=== PATIENT | female | born 1985 | race Asian ===

== ENCOUNTER 2021-12-27 00:47 | Day surgery (SDC) | payer BC, SELFPAY ==
[2021-12-23 17:06] VITALS: BMI 18.8
[2021-12-23 17:07] VITALS: BMI 27.6
--- NOTE | 2021-12-23 17:31 | PC.NURSE ---
Report to the Outpatient Waiting Room, entrance under the green pavilion located off [facility], at 0730 on 12-27-21 . OR Time: 0930. - You and your visitor will be asked a series of questions to screen for COVID 19 for your protection. - Only one visitor is allowed at this time. - The patient visitor is requested to leave or wait in car when not with patient. - A mask is required within the hospital. Patients may have clear liquids (water, carbonated beverages, clear teas, apple juice) until 3 hours prior to surgery with a maximum of 20 ounces. 0630 - No food from midnight until time of surgery - Infants may have breast milk until 4 hours before surgery, infant formula 6 hours prior to surgery. - Children will be allowed to drink immediately following surgery. If applicable, please bring a bottle or sippy cup to assist with drinking. Juice, water, soda, and popsicles are readily available. For infants on formula, please bring formula the day of surgery. Pacifiers are allowed. Take the following medications with a SIP of water the morning of surgery: None Medications to discontinue per physician: N/A Please no make-up, nail romanian, hairspray, perfume, deodorant, or body powder the day of surgery. No jewelry (including any body piercings) or valuables the day of surgery, leave them at home. Please take a shower or bath the night before, or the morning of, surgery with an antibacterial soap. Wear comfortable, loose fitting clothing. Children are encouraged to wear pajamas. - Jewelry must be removed prior to entering the operating room. Rings and piercings that are not removed may be cut off. - The hospital will not accept responsibility for valuables. - Please leave all valuables, including medications, at home the day of surgery. If you are going home after surgery, a licensed emergency detail driver must drive you home. - NO public transportation without another adult. - We recommend that an adult stay with you for 24 hours following discharge. - We also recommend that you do not drive, make important decision, drink alcoholic beverages, or take any drugs that were not prescribed by your health care provider for at least 24 hours after your discharge time. For Pediatric surgeries, we recommend two adults accompany the child home (only one inside the building at this time). Follow any additional instructions given to you from your surgeon. If you or anyone in your household have experienced Covid symptoms in the past week, please notify your surgeon or the nurse liaison at the phone number below for possible testing. Telephone instructions given to Matias Flores and asked if any additional questions and then verbalized understanding. Patient advised to call surgeon office or pre surgery nurse liaison [phone] if any additional questions.
--- NOTE | 2021-12-26 07:14 | P.HP_ITS ---
H&P: HPI History of Present Illness Date/Time: 12/26/21 07:14 Chief Complaint: Chronic tonsillitis recurrent tonsillitis difficult intubation Narrative: history of difficult intubation flexible laryngoscopy demonstrates her the airway by my review. Planned surgical procedure otherwise. [facility] Past Medical History Medical History Acne Family History Family History Mother Hypertension Heart disease Social History Social History Social History: Smoking status: Never smoker Second hand tobacco smoke exposure: No Alcohol intake: never Substance use: never Substance use type: does not use Living arrangements: alone Gender identity (if verbalized by the patient): Female Sexual Orientation (if Verbalized by the Patient): Straight or Heterosexual Spiritual care concerns: No Meds Home Medications and Allergies Home Medications Medication Instructions Recorded Confirmed Type clindamycin HCl 300 mg capsule 300 mg PO Q8H #21 caps 12/10/21 12/23/21 Rx Allergies Allergy/AdvReac Type Severity Reaction Status Date / Time No Known Allergies Allergy Verified 12/23/21 17:04 Exam Narrative: See previous exam from office note Assessment and Plan Assessment and plan (1) Difficult intubation: Code(s): T88.4XXA - Failed or difficult intubation, initial encounter Status: Acute Assessment and Plan: ?plan is for the OR tonsillectomy risks discussed including bleeding infection damage to surrounding structures need for further procedures postoperative bleeding 3-5% 1 in 30,000 tongue pain ear pain coughing throat pain smelling bad looks like garbage tongue numbness throat numbness tooth numbness tooth pain damage to any structure above the clavicles by myself damage to any structures during the induction and remains of anesthesia.? (2) Tonsil stone: Code(s): J35.8 - Other chronic diseases of tonsils and adenoids Status: Acute (3) Halitosis: Code(s): R19.6 - Halitosis Status: Acute (4) Recurrent tonsillitis: Code(s): J03.91 - Acute recurrent tonsillitis, unspecified Status: Acute (5) Chronic tonsillitis: Code(s): J35.01 - Chronic tonsillitis Status: Acute
--- NOTE | 2021-12-26 14:30 | WPDANESEPPF ---
Anes - Initial Pre Proc Eval Procedure: Operation Date: 12/27/21 09:30 Proposed Procedures p Tonsillectomy - Dante Allison MD Date/Time: 12/26/21 14:30 Surgeon: Dante Allison MD Pre Op Diagnosis: hypertrophic tonsils Patient Data Age: 36 Gender: F Height: 1.45 m Weight: 58 kg Allergies Allergy/AdvReac Type Severity Reaction Status Date / Time No Known Allergies Allergy Verified 12/27/21 07:42 Home Medications Medication Instructions Recorded Confirmed Type clindamycin HCl 300 mg capsule 300 mg PO Q8H #21 caps 12/10/21 12/23/21 Rx Patient hx anesthesia problems: none Family hx anesthesia problems: none Results Review: All pre-operative results and documents have been reviewed as part of the pre-operative evaluation. [facility] Past Medical History Medical History (Updated 12/26/21 @ 14:31 by Ger Ogden MD) Acne Difficult intubation Overweight (BMI 25.0-29.9) PCOS (polycystic ovarian syndrome) Recurrent tonsillitis Tonsil stone Family History Family History Mother Hypertension Heart disease Social History Social History Social History: Smoking status: Never smoker Second hand tobacco smoke exposure: No Alcohol intake: never Substance use: never Substance use type: does not use Living arrangements: alone Gender identity (if verbalized by the patient): Female Sexual Orientation (if Verbalized by the Patient): Straight or Heterosexual Spiritual care concerns: No Anes - Eval Final PreProcedure Day of Procedure 12/26/21 14:30 Patient weight: overweight Heart: regular rate and rhythm Lungs: clear to auscultation and normal air movement Airway: Mallampati scale class II Neurological: alert and oriented Last oral intake: >/= 8 hours ASA classification: II Emergent: no Anesthetic plan: proceed Anesthesia type and monitoring: general ETT Results Review: All pre-operative results and documents have been reviewed as part of the pre-operative evaluation. Informed Consent: The patient's anesthetic plan and its attendant risks and benefits were discussed with the patient/family/POA. Questions were solicited and answers provided to the satisfaction of the patient/family/POA.
[2021-12-27] VITALS (10 sets, daily range): BP systolic 99–122; BP diastolic 56–75; PULSE 72–94; RESP 12–18; TEMP 36.2–36.4; O2SAT 99–100
--- NOTE | 2021-12-27 07:08 | WPDHPUPDATE1 ---
History and Physical Update Update Date/Time: 12/27/21 07:08 History and Physical has been reviewed, including an updated exam of the patient. There are NO changes in the patient's condition. Risks, benefits, and alternatives have been discussed and questions answered. Patient agrees to proceed with procedure.
[2021-12-27] MEDS: ACETAMINOPHEN 500 MG TABLET 1000 MG PO (08:04)
[2021-12-27] MEDS: LACTATED RINGERS 1,000 ML 30 ML IV CONT (08:13)
--- NOTE | 2021-12-27 10:03 | W.PM.PROC2 ---
Procedure Note - Detailed Date of Procedure 12/27/21 Pre-op Diagnosis Chronic tonsillitis, recurrent tonsillitis Post-op Diagnosis Same Procedure Performed Tonsillectomy largely intracapsular Surgeon Dante Allison MD Anesthesia General Indications See above Findings Incredibly small scarred down tonsils the vast majority removed in an intracapsular fashion by peeling them off the pharyngeal musculature using Bovie suction electrocautery at a setting of 15. Description of Procedure Patient identified consent verified in preop. Patient brought operating room. Time-out performed. General anesthesia induced endotracheal tube secured an airway. Bed moved patient prepped and draped for the aforementioned procedure. Second time-out performed. Narrow oral opening tonsils very small the right was grasped after the McIvor mouth gag was opened, and a small superior portion was removed in the extracapsular plane. At this time it was noted that the majority of the tonsils were too small to grasp and the decision was made to perform an intracapsular tonsillectomy bilaterally Bovie suction electrocautery at a setting of 15 was utilized to cauterize the very small fragile I will tonsillar tissue and peel it off the pharyngeal musculature. Hemostasis was excellent blood loss less 5 cc this was performed bilaterally the left being totally intracapsular or an intracapsular fashion the right having the majority performed in that. Fashion. After the tonsillectomy was performed McIvor mouth gag lowered reopened after 30 seconds to reveal no further bleeding. Total blood loss about 5 cc. I performed all dictated portions of the procedure. Care the patient given Anesthesiology all hardware removed. Patient taken to PACU no complications. Estimated Blood Loss -5.0 Drains No Packing No Pathology Yes Complications No immediate complications Condition Stable Disposition PACU
[2021-12-27] MEDS: fentaNYL CITRATE INJ (*CRX) 100 MCG/2 ML VIAL 25 MCG IV PUSH ×2 (10:28→10:30)
[2021-12-27] MEDS: oxyCODONE HCL (*CRX) 5 MG TAB IR PO (11:01)
--- NOTE | 2021-12-27 12:16 | SUR.PHASEII ---
1215- Vital signs stable, patient with tolerable pain level after administration of oxycodone pill. Patient eating and drinking well with no complaints of swelling or trouble swallowing in the throat. No signs of bleeding or oozing from surgical area. Patient dressed at this time and awaiting ride home.
== END 2021-12-27 12:49 | disposition home or self-care (01) ==
PROVIDERS: PCP Family Medicine; Visit Provider Otolaryngology
PROC: (CPT 42826; principal; 2021-12-27 09:30)
DX: J03.91 Acute recurrent tonsillitis, unspecified (principal); J35.01 Chronic tonsillitis; R19.6 Halitosis
CPT/HCPCS: 42826; 88304; A9270; J0330; J1100; J2250; J2405; J2704; J3010; J7120